=== PATIENT | female | born 1940 | race Caucasian/White ===

== ENCOUNTER 2021-07-16 18:28 | Inpatient (IN) | payer OTHER ==
[~2021-07-16] VITALS: Ht 165.1 cm; Wt 72.6 kg
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
[2021-07-16 19:30] LABS: HEMATOCRIT 39.7 % (31.2-41.9); MEAN CORPUSCULAR HEMOGLOBIN 29.9 uug (24.7-32.8); MEAN CORPUSCULAR VOLUME 89.1 fL (75.5-95.3); PLATELET COUNT (AUTO) 154 K/uL (179-408)
[2021-07-16 19:36] LABS: CARBON DIOXIDE 30 mmol/L (21-32); CHLORIDE 105 mmol/L (98-107); CREATININE 1.3 mg/dL (0.6-1.3); GLUCOSE 103 mg/dL (74-106); POTASSIUM 4.3 mmol/L (3.5-5.1); UREA NITROGEN, BLOOD 31 mg/dL (7-18)
[2021-07-16 19:42] LABS: ALANINE AMINOTRANSFERASE 19 U/L (14-59); ALKALINE PHOSPHATASE 82 U/L (50-136); ASPARTATE AMINOTRANSFERASE 11 U/L (15-37); BILIRUBIN,DIRECT 0.1 mg/dL (0.0-0.2); BILIRUBIN,TOTAL 0.3 mg/dL (0.2-1.0); TOTAL PROTEIN, SERUM 6.9 g/dL (6.4-8.2)
[2021-07-16 19:43] LABS: ACETAMINOPHEN < 2.0 ug/mL (10-30)
[2021-07-16 19:46] LABS: ETHANOL < 3 MG/DL (0-0)
[2021-07-16 20:07] LABS: MAGNESIUM 2.3 mg/dL (1.8-2.4)
[2021-07-16] MEDS ORDERED: LISINOPRIL 10 MG TABLET ONE (20:58)
[2021-07-16] MEDS ORDERED: LISINOPRIL 10 MG TABLET PO ONE (21:00)
--- NOTE | 2021-07-16 21:10 | NUR ---
offered blood pressure medication. pt refused and attempted to get out of bed.
[2021-07-16] MEDS ORDERED: HALOPERIDOL LACTATE 5 MG/1 ML VIAL IM ONE (21:15)
[2021-07-16] MEDS ORDERED: LORAZEPAM 2 MG/1 ML VIAL IM ONE (21:15)
--- NOTE | 2021-07-16 21:15 | NUR ---
pt was attempting to leave the room. told pt that she was on a 5150 hold and was not allowed to leave.
[2021-07-16] MEDS ORDERED: HALOPERIDOL LACTATE 5 MG/1 ML VIAL ONE (21:16)
[2021-07-16] MEDS ORDERED: LORAZEPAM 2 MG/1 ML VIAL ONE (21:17)
[2021-07-16 21:38] LABS: *BILIRUBIN,URIN NEGATIVE (NEGATIVE); *CLARITY,URINE CLEAR (CLEAR); *COLOR,URINE YELLOW (YELLOW); *KETONES,URINE 2+ (NEGATIVE); *UROBILINOGEN,URINE 0.2 E.U./dl (NORMAL); LEUKOCYTE ESTERASE ,URINE NEGATIVE (NEGATIVE); NITRITE, URINE NEGATIVE (NEGATIVE); PH,URINE 5.5 (5.0-8.0); UGLUCOSE NEGATIVE (NEGATIVE)
[2021-07-16 21:41] LABS: *BLOOD, URINE TRACE (NEGATIVE)
[2021-07-16 21:44] LABS: BACTERIA,URINE FEW /HPF (NONE SEEN); SQUAMOUS EPITHELIAL CELL,UR FEW /HPF (NONE SEEN)
[2021-07-16 22:08] LABS: *AMPHETAMINE, URINE NEGATIVE (NEGATIVE); *CANNABINOID, URINE NEGATIVE (NEGATIVE); *COCCAINE, URINE NEGATIVE (NEGATIVE); *OPIATE, URINE NEGATIVE (NEGATIVE); *PHENCYCLIDINE SCREEN,URINE NEGATIVE (NEGATIVE)
--- NOTE | 2021-07-16 22:57 | NUR ---
Report given to César PYLE.
[2021-07-16 23:00] VITALS: BP 128/75
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
--- NOTE | 2021-07-16 23:27 | NUR ---
[facility].
[2021-07-17] MEDS ORDERED: LORAZEPAM 0.5 MG TABLET PO PRN (00:15)
[2021-07-17] MEDS ORDERED: BLOOD SUGAR DIAGNOSTIC 1 EACH STRIP VI ONE (00:15)
[2021-07-17] MEDS ORDERED: ACETAMINOPHEN 325 MG TABLET PO PRN (00:15)
[2021-07-17] MEDS ORDERED: MAG HYDROX/AL HYDROX/SIMETH 30 ML LIQUID UDC PO PRN (00:15)
--- NOTE | 2021-07-17 05:53 | NUR ---
Patient was transfer to MHU unit room 41, and her belongings. Patient alert but forgetful, gave report to Zelalem PYLE.
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
--- NOTE | 2021-07-17 06:00 | NUR ---
Patient slept for 6.30 hours.
[2021-07-17 07:30] VITALS: BP 140/65
[2021-07-17] MEDS ORDERED: FLUOXETINE HCL 10 MG CAPSULE PO SCH (13:00)
[2021-07-17] MEDS ORDERED: CLOP75TA15 PO (14:35)
[2021-07-17 16:00] VITALS: BP 130/41
[2021-07-17 20:40] VITALS: BP 132/51
--- NOTE | 2021-07-17 21:47 | NUR ---
A[place]ake upon initial rounds. AAOx3-4 Confused. On 72 hour hold. Slept most of the shift. Calm and quiet. No behavioral issues noted. Kept comfortable. OOB to the BR with assist. Voiding freely. Will monitor patient. No acute distress noted. VSS. Fall precautions maintained. Siderails up for safety.
[2021-07-18 07:30] VITALS: BP 154/67
[2021-07-18 07:51] LABS: BILIRUBIN,TOTAL 0.3 mg/dL (0.2-1.0); CREATININE 0.7 mg/dL (0.6-1.3); POTASSIUM 3.9 mmol/L (3.5-5.1); TOTAL PROTEIN, SERUM 6.3 g/dL (6.4-8.2)
--- NOTE | 2021-07-18 09:00 | NUR ---
PATIENT IS IN BED QUITE AND SEEMS DEPRESSED BUT IS COOPERATIVE AND COMPLIANT SHE IS ALERT AND COOPERATIVE PATIENT ENCOURAGED TO PARTICIPATE IN ACTIVITIES AND TO EXPRESS FEELINGS MUCH POSSIBLE
[2021-07-18] MEDS: FLUOXETINE HCL 20 MG CAPSULE PO SCH (13:17)
[2021-07-18 16:00] VITALS: BP 162/66
[2021-07-18 20:00] VITALS: BP 145/59
[2021-07-18] MEDS: TEMAZEPAM 7.5 MG CAPSULE PO PRN (20:25)
--- NOTE | 2021-07-19 06:07 | NUR ---
Slept 6.5 hours. Quietly staying in bed. No complaint presented. Compliant and cooperative to plan of care. No significant event reported all night.
[2021-07-19 08:00] VITALS: BP 102/59
[2021-07-19] MEDS: CLOPIDOGREL 75 MG TABLET PO SCH (09:01)
[2021-07-19] MEDS: NITROFURANTOIN/NITROFURAN MAC 100 MG CAPSULE PO SCH ×2 (10:02→20:13)
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
--- NOTE | 2021-07-19 11:48 | NUR ---
Firearms Report: Director University completed and submitted a [employer] firearms report for 5150 grave disability certifications. A copy of report has been placed in patient chart.
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
[2021-07-19] MEDS: FLUOXETINE HCL 20 MG CAPSULE PO SCH (12:41)
--- NOTE | 2021-07-19 14:13 | NUR ---
Received patient sleeping in her room. A/O X 2 to person, place. Pt. is cooperative with care and compliant with medications, calm, withdrawn, quiet, friendly. Ambulates independently. Continent of bladder and bowel. Denies SI/HI AH/VH. Denies pain or any discomfort. Reassurance given. Fall and safety precautions implemented.
[2021-07-19 16:42] VITALS: BP 112/55
[2021-07-19] MEDS: TEMAZEPAM 7.5 MG CAPSULE PO PRN (20:13)
[2021-07-19 20:53] VITALS: BP 127/40
--- NOTE | 2021-07-20 05:45 | NUR ---
received patient in bed , awake alert x1. Patient is guarded and isolative. remains in bed all night. medication compliant. safety strategies in place.
[2021-07-20 08:00] VITALS: BP 144/69
[2021-07-20] MEDS: CLOPIDOGREL 75 MG TABLET PO SCH (08:36)
[2021-07-20] MEDS: NITROFURANTOIN/NITROFURAN MAC 100 MG CAPSULE PO SCH ×2 (08:37→21:32)
[2021-07-20] MEDS: FLUOXETINE HCL 20 MG CAPSULE PO SCH (12:46)
--- NOTE | 2021-07-20 15:54 | NUR ---
Received patient sleeping in her room. A/O X 2 to person, place. Pt. is withdrawn, isolative, cooperative, calm, compliant with medications. Denies SI/HI AH/VH. Denies pain or any discomfort. Ambulates without assistance. Requires minimal assistance with ADL. Reassurance given. Fall and safety precautions implemented.
[2021-07-20 16:48] VITALS: BP 136/69
[2021-07-20 20:02] VITALS: BP 142/66
[2021-07-21 07:30] VITALS: BP 172/63
[2021-07-21] MEDS: CLOPIDOGREL 75 MG TABLET PO SCH (08:54)
[2021-07-21] MEDS: NITROFURANTOIN/NITROFURAN MAC 100 MG CAPSULE PO SCH ×2 (08:54→20:51)
[2021-07-21] MEDS: FLUOXETINE HCL 20 MG CAPSULE PO SCH (13:25)
--- NOTE | 2021-07-21 14:19 | NUR ---
Received patient sleeping in her room. A/O X 2 to person, place. Pt. is isolative, quiet, cooperative with care and compliant with medications. Pt. showered today. Pt. ambulates independently. Pt. is encourage to vent feelings. Fall and safety precautions implemented.
[2021-07-21 16:00] VITALS: BP 142/85
[2021-07-21 20:00] VITALS: BP 139/50
[2021-07-22 07:30] VITALS: BP 178/71
[2021-07-22] MEDS: CLOPIDOGREL 75 MG TABLET PO SCH (08:48)
[2021-07-22] MEDS: NITROFURANTOIN/NITROFURAN MAC 100 MG CAPSULE PO SCH ×2 (08:48→21:27)
--- NOTE | 2021-07-22 13:02 | NUR ---
UR Note Spoke with Antony Burgos case hardener ([phone]). Patient is authorized from 07/16/21 through 07/23/21. Authorization : [id number]. Review needed on 07/23/21.
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
[2021-07-22] MEDS: FLUOXETINE HCL 20 MG CAPSULE PO SCH (14:05)
--- NOTE | 2021-07-22 15:01 | NUR ---
COURT HEARING DONE TODAY FOR THE 14 DAY HOLD AND WILL CONTINUE WITH THE HOLD WITH PROBABLE CAUSE OF GRAVE DISABILITY.
--- NOTE | 2021-07-22 15:43 | NUR ---
Gps/Alterations Tailor- Had been quiet, stayed in her room in bed most of the morning, encouraged participation in her group therapy, compliant with her routine medications ,answers to simple questions, delayed .
[2021-07-22 16:50] VITALS: BP 126/48
[2021-07-22 20:05] VITALS: BP 136/56
[2021-07-23 07:30] VITALS: BP 145/64
[2021-07-23] MEDS: CLOPIDOGREL 75 MG TABLET PO SCH (08:21)
[2021-07-23] MEDS: NITROFURANTOIN/NITROFURAN MAC 100 MG CAPSULE PO SCH ×2 (08:21→20:23)
[2021-07-23] MEDS: FLUOXETINE HCL 20 MG CAPSULE PO SCH (12:30)
--- NOTE | 2021-07-23 13:31 | NUR ---
UR Kitty Spoke with Antony Chong ([phone]) and provided clinical review. She is asking about discharge planning. Will request that Rowan KARIMI reach out to Chandra in this regard. Authorization obtained for stay until 07/28/21. Last covered day is 07/28/21. Safe discharge is reason for authorization. Review is needed on 07/28/21. Authorization [id number]. software release manager ([phone]) needs to provide in network outpatient providers for patient. [phone] can also provide resources.
--- NOTE | 2021-07-23 14:45 | NUR ---
Late Entry Probable Cause Hearing Note Patient had a probable cause hearing on 07/22/21 and this was upheld by [place] Court. LASHANDA Masterson presented case to the wool shearing supervisor. Patient did not attend her hearing.
[2021-07-23 15:53] VITALS: BP 140/55
[2021-07-23 20:32] VITALS: BP 148/52
[2021-07-24 08:14] VITALS: BP 167/74
[2021-07-24] MEDS: NITROFURANTOIN/NITROFURAN MAC 100 MG CAPSULE PO SCH ×2 (08:32→20:05)
[2021-07-24] MEDS: CLOPIDOGREL 75 MG TABLET PO SCH (08:32)
[2021-07-24] MEDS: FLUOXETINE HCL 20 MG CAPSULE PO SCH (12:38)
--- NOTE | 2021-07-24 13:57 | NUR ---
GPS: Nursing Notes: Thought Disorder: Patient is awake and responding to her name, compliant with her medications, A/Ox2, impaired judgment, disoriented, poor insight, isolative at times, episodes of wandering around the unit, redirected and reoriented during shift, unable to formulate a viable plan for self care, continue with treatment plan.
[2021-07-24 16:49] VITALS: BP 157/72
[2021-07-25 08:42] VITALS: BP 159/72
[2021-07-25] MEDS: CLOPIDOGREL 75 MG TABLET PO SCH (08:51)
[2021-07-25] MEDS: NITROFURANTOIN/NITROFURAN MAC 100 MG CAPSULE PO SCH (08:51)
[2021-07-25] MEDS: FLUOXETINE HCL 20 MG CAPSULE PO SCH (12:31)
[2021-07-25] MEDS: AMLODIPINE 2.5 MG TABLET PO SCH (13:35)
--- NOTE | 2021-07-25 13:49 | NUR ---
GPS: Nursing Notes: Thought Disorder: Patient is awake and responding to her name, isolative and withdrawn in her room, no interactions with peers, depressed mood and flat affect, redirected and reoriented during shift, needs prompting to participate in therapeutic groups, resistant with nursing care at times, but following directions, continue to monitor for safety, unable to formulate a viable plan for self care, continue with treatment plan.
[2021-07-25 16:42] VITALS: BP 147/61
[2021-07-25 20:19] VITALS: BP 151/64
--- NOTE | 2021-07-26 04:20 | NUR ---
GPS NOTES: patient in her bed sleeping, responsive to her name. A&0x1. Patient is withdrawn and isolative. Compliant with medications. slept most of the night with no apparent distress noted. safety strategies in place. will continue treatment plan.
[2021-07-26 07:37] VITALS: BP 156/68
[2021-07-26] MEDS: CLOPIDOGREL 75 MG TABLET PO SCH (09:26)
[2021-07-26] MEDS: AMLODIPINE 2.5 MG TABLET PO SCH (09:26)
[2021-07-26] MEDS: FLUOXETINE HCL 20 MG CAPSULE PO SCH (12:49)
[2021-07-26 16:49] VITALS: BP 124/64
--- NOTE | 2021-07-26 18:19 | NUR ---
GPS: Nursing Notes: Thought Disorder: Patient is awake and responding to her name, cooperative with nursing care, compliant with her medications, depressed mood blunted affect, isolative and withdrawn in her room, no interactions with peers, needs a lot prompting to participate in therapeutic groups, unkempt appearance, unable to formulate a viable plan for self care, A/Ox2, continue to monitor for safety, believes that she is getting better, continue with treatment plan.
[2021-07-26 20:03] VITALS: BP 146/64
[2021-07-27 07:30] VITALS: BP 143/58
[2021-07-27] MEDS: AMLODIPINE 2.5 MG TABLET PO SCH (08:48)
[2021-07-27] MEDS: CLOPIDOGREL 75 MG TABLET PO SCH (08:48)
[2021-07-27] MEDS: FLUOXETINE HCL 20 MG CAPSULE PO SCH (13:07)
--- NOTE | 2021-07-27 13:43 | NUR ---
SW Discharge Update: SW left a voicemail for a call back for Antony Chong ([phone]) regarding pt's discharge questions. Pt is authorization for stay until 07/28/21. Last covered day is 07/28/21. Safe discharge is reason for authorization. Review is needed on 07/28/21. Authorization [id number]. HUGO left a voicemail for a call back for training program managerNilo ([phone]) inquiring information regarding outpatient providers for pt. Alternative renal case managerengineering project manager is: [phone]. Pt does not have any family contact and will be safely discharged to a [facility] facility upon discharge.
[2021-07-27 15:55] VITALS: BP 135/51
--- NOTE | 2021-07-27 17:49 | NUR ---
GPS: PT ALERT AND VERBALLY RESPONSIVE, ORIENTED X2. PT COMPLIANT WITH CARE AND MEDICATIONS. PT ISOLATIVE BUT SEEN WALKING AND GOING OUT OF HER ROOM FEW TIMES. ENCOURAGED PT TO ATTEND GROUP THERAPY. UNABLE TO VIABLE PLAN FOR SELF CARE. WILL MONITOR FOR SAFETY.
[2021-07-27 19:59] VITALS: BP 142/54
[2021-07-28 07:30] VITALS: BP 155/53
[2021-07-28] MEDS: CLOPIDOGREL 75 MG TABLET PO SCH (09:33)
[2021-07-28] MEDS: AMLODIPINE 2.5 MG TABLET PO SCH (09:34)
--- NOTE | 2021-07-28 09:35 | NUR ---
HUGO UR Note: HUGO spoke with Antony Chong ([phone]) regarding pt's utilization review. Monisha stated pt is not authorized for continued care at [facility]. Last covered day is today, 07/28/21. Safe discharge was also not a reason to authorize per Monisha. Authorization [id number].
[2021-07-28] MEDS: FLUOXETINE HCL 20 MG CAPSULE PO SCH (13:39)
[2021-07-28 16:00] VITALS: BP 132/52
--- NOTE | 2021-07-28 16:21 | NUR ---
HUGO Discharge Note: Pt will be discharged to [facility] located at [address] [place] [id number] via assisted living transportation by [facility] ([phone]) at 6PM. [facility] is aware of the transportation details and agreeable. Pt is aware and agreeable with discharge plans. Pt is alert and oriented x4, is unable to plan for self-care at this time; however, is willing to accept care at the assisted living. Pts intellectual property counsel, Chandra ([phone]) is aware and agreeable with the discharge plan. HUGO contacted and left a voicemail for the pts trustee, Travon Barros ([phone]) regarding pts discharge information on location and time. Pt denies any suicidal or homicidal ideation. HUGO will assign patient with [facility] for psychiatrist follow-up. Pt will follow-up with her outpatient global director air and climate change. Pt presents with calm mood and congruent affect. PHARMACY: [facility] ([phone])[address] [place] [address].
--- NOTE | 2021-07-28 17:06 | NUR ---
GPS: PT ALERT AND VERBALLY RESPONSIVE AND DENIES ANY PAIN OR DISCOMFORT. COMPLIANT TO CARE AND MEDS. PT NO AGITATION NOTED TODAY. PT ISOLATIVE, LIKE TO STAY IN HER ROOM BUT SOMETIMES SEEN STANDING IN FRONT OF THE DOOR. PT WILL BE DISCHARGE TODAY AND WILL BE TOWEL HEMMER BY FACILITY TRANSPORTATION GOING [facility]. COVID TEST DONE WAITING FOR RESULT. CALLED [facility] TO INFORM ABOUT PT DISCHARGE AND MED RECON. DR NEGRON AND HER OFFICE MADE AWARE AND RANDAL. Addendum: 07/28/21 at 1809 by RM BLUE RN PSYCHIATRIST WILL CALL FACILITY PHARMACIST TO ORDER MEDS.
--- NOTE | 2021-07-28 18:03 | NUR ---
GPS: CALLED [facility] EXCHANGE TWICE FOR MED RECON. FORESTRY EXTENSION SPECIALIST CALLED BACK AT 1712 AND SHE'S ALREADY OUT FROM WORK. CALLED [facility] AND ADVISED THAT RESIDENTIAL DRIVER [facility] WILL BE CALLED, BUT DID NOT RECEIVE A CALL BACK. NO MD AT 3RD FLOOR MED SURG AT THIS TIME. PER FORESTRY EXTENSION SPECIALIST, TO JUST ASK THE FACILITY TO CALL THEIR PMD TO CONTINUE WITH THE MED.
--- NOTE | 2021-07-28 19:37 | NUR ---
GPS: PT DISCHARGED FROM FACILITY, PICKED UP BY [facility] AND WILL BE GOING TO [facility] [id number], [facility] [id number] SPOKED WITH RAFAELA, CLOTH DYE RANGE OPERATOR ABOUT PT INFO. LIC #[id number]. PT DENIES ANY PAIN OR DISCOMFORT. ALERT/ ORIENTED X3. COMPLIANT WITH MEDS AND CARE. NO AGITATION NOTED AT THIS TIME. SW AND MADE AWARE. ALL BELONGINGS GIVEN AND ALL PAPERS SIGNED.
== END 2021-07-28 19:55 | DRG 881 ==
LOC: ER 18:31 → GPSOV3 22:59 → GPS 07-17 05:45
PROVIDERS: ADMIT Psychiatry & Neurology Psychosomatic Medicine; ATTEND Internal Medicine
DX: F32.9 Major depressive disorder, single episode, unspecified (principal); F01.50 Vascular dementia, unspecified severity, without behavioral disturbance, psychotic disturbance, mood disturbance, and anxiety; N17.0 Acute kidney failure with tubular necrosis; G93.40 Encephalopathy, unspecified; N39.0 Urinary tract infection, site not specified; Z86.73 Personal history of transient ischemic attack (TIA), and cerebral infarction without residual deficits; B96.20 Unspecified Escherichia coli [E. coli] as the cause of diseases classified elsewhere; I10 Essential (primary) hypertension; Z20.822 Contact with and (suspected) exposure to COVID-19; D69.6 Thrombocytopenia, unspecified; E66.9 Obesity, unspecified; Z68.26 Body mass index [BMI] 26.0-26.9, adult
CPT/HCPCS: 36415; 71045; 83735; 85025; 87077; 87086; 93005; 97161; A4663; C1758; G0480; J1630; J2060